=== PATIENT | male | born 1960 | race Caucasian/White ===

== ENCOUNTER 2019-07-21 12:12 | Emergency (ER) | payer OTHER ==
[2019-07-21 12:47] LABS: ABSOLUTE BASOPHILS # (AUTO) 0.1 10^3/uL (0.0-0.2); ABSOLUTE EOSINOPHILS # (AUTO) 0.4 10^3/uL (0.0-0.6); ABSOLUTE LYMPHOCYTES (AUTO) 2.1 10^3/uL (0.5-4.7); ABSOLUTE MONOCYTES (AUTO) 0.5 10^3/uL (0.1-1.4); ABSOLUTE NEUT (AUTO) 4.2 10^3/uL (1.7-8.2); BASOPHILS % (AUTO) 1.3 % (0-2); HEMOGLOBIN 16.7 g/dL (13.5-17.0); MEAN CORPUSCULAR HEMOGLOBIN 35.7 pg (27.0-33.4); MEAN CORPUSCULAR HGB CONC 35.4 g/dL (32.0-36.0); MEAN CORPUSCULAR VOLUME 101 fl (80-97); MONOCYTES % (AUTO) 7.5 % (3-13); PLATELET COUNT 177 10^3/uL (150-450); RED BLOOD COUNT 4.67 10^6/uL (4.35-5.55); RED CELL DISTRIBUTION WIDTH 13.6 % (11.5-14.0); SEGMENTED NEUTROPHILS % (AUTO) 57.2 % (42-78); TOTAL CELLS COUNTED % (AUTO) 100 %; WHITE BLOOD COUNT 7.3 10^3/uL (4.0-10.5)
--- NOTE | 2019-07-21 12:54 | ER Document Report ---
ED Cardiac - General Chief Complaint: Arrhythmia Stated Complaint: CHEST PAIN Time Seen by Provider: 07/21/19 12:28 Mode of Arrival: Medic Information source: Patient - HPI Notes: Patient is sent over by his manager food. Patient was having a cardiac stress test today when he had dizziness with con commitment wide-complex tachycardia, V. tach, and A. fib. His manager food aborted the stress test and transfer him to the emergency department. He states he would like the patient transferred to [facility]. Patient arrives essentially symptom-free. He states when he had the dizziness it was brief. It was made worse by the exertion better when he rested. There is no radiation of the symptoms. They were moderate in intensity. He states he had no chest pain or shortness of breath at any time. He states he has had a myocardial infarction in the past that is been treated with a stent. He states he takes 1 aspirin per day and has taken one today. - Related Data Allergies/Adverse Reactions: No Known Allergies Allergy (Unverified 07/21/19 12:29) Past Medical History - General Information source: Patient - Social History Smoking Status: Current Every Day Smoker Chew tobacco use (# tins/day): No Frequency of alcohol use: None Drug Abuse: None Family History: Reviewed & Not Pertinent Patient has homicidal ideation: No - Past Medical History Cardiac Medical History: Reports: Hx Hypercholesterolemia, Hx Hypertension Endocrine Medical History: Reports: Hx Diabetes Mellitus Type 2 Past Surgical History: Reports: Hx Cardiac Catheterization - 1 stent Review of Systems - Review of Systems Constitutional: denies: Chills, Malaise Cardiovascular: denies: Chest pain, Palpitations Respiratory: denies: Cough, Short of breath -: Yes All other systems reviewed and negative Physical Exam - Vital signs Vitals: Pulse Ox 96 07/21/19 12:29 Interpretation: Normal - General General appearance: Appears well, Alert - HEENT Head: Normocephalic, Atraumatic Eyes: Normal Pupils: PERRL - Respiratory Respiratory status: No respiratory distress Chest status: Nontender Breath sounds: Normal Chest palpation: Normal - Cardiovascular Rhythm: Regular Heart sounds: Normal auscultation Murmur: No - Abdominal Inspection: Normal Distension: No distension Bowel sounds: Normal Tenderness: Nontender Organomegaly: No organomegaly - Back Back: Normal, Nontender - Extremities General upper extremity: Normal inspection, Nontender, Normal color, Normal ROM, Normal temperature General lower extremity: Normal inspection, Nontender, Normal color, Normal ROM, Normal temperature, Normal weight bearing. No: Jesus's sign - Neurological Neuro grossly intact: Yes Cognition: Normal Orientation: AAOx4 Seema Coma Scale Eye Opening: Spontaneous [place] Coma Scale Verbal: Oriented Seema Coma Scale Motor: Obeys Commands Seema Coma Scale Total: 15 Speech: Normal Motor strength normal: LUE, RUE, LLE, RLE Sensory: Normal - Psychological Associated symptoms: Normal affect, Normal mood - Skin Skin Temperature: Warm Skin Moisture: Dry Skin Color: Normal Course - Re-evaluation Re-evalutation: 07/21/19 14:19 Patient was sent from the cardiology office due to V. tach during a stress test. Patient arrived here asymptomatic and has remained so throughout the stay. I have discussed the case with the manager food at [facility] who has accepted the patient in transfer. - Vital Signs Vital signs: Temp Pulse Resp BP Pulse Ox 98.1 F 23 H 130/86 H 95 07/21/19 12:30 07/21/19 14:01 07/21/19 14:00 07/21/19 14:01 - Laboratory Result Diagrams: 07/21/19 12:29 07/21/19 12:29 Laboratory results interpreted by me: 07/21/19 07/21/19 12:29 12:29 MCV 101 H MCH 35.7 H Carbon Dioxide 34 H Glucose 72 L - EKG Interpretation by Ok EKG shows normal: Sinus rhythm Rate: Normal - 75 Rhythm: NSR, APC's [place]/QRS: LAHB/LAFB Discharge - Discharge Clinical Impression: Ventricular tachycardia, nonsustained Condition: Stable Disposition: [facility]
[2019-07-21 13:05] LABS: ALBUMIN 4.3 g/dL (3.5-5.0); ALKALINE PHOSPHATASE 57 U/L (38-126); ANION GAP 6 (5-19); ASPARTATE AMINO TRANSFERASE 23 U/L (17-59); BILIRUBIN,TOTAL 0.6 mg/dL (0.2-1.3); BLOOD UREA NITROGEN 12 mg/dL (7-20); CARBON DIOXIDE 34 mmol/L (22-30); CHLORIDE 98 mmol/L (98-107); GLUCOSE 72 mg/dL (75-110); POTASSIUM 3.8 mmol/L (3.6-5.0); TOTAL PROTEIN 7.1 g/dL (6.3-8.2)
[2019-07-21 21:15] VITALS: BP 144/86
--- NOTE | 2019-07-22 07:42 | EKG REPORT ---
SEVERITY:- ABNORMAL ECG - SINUS RHYTHM MULTIPLE ATRIAL PREMATURE COMPLEXES LEFT ANTERIOR FASCICULAR BLOCK ANTERIOR INFARCT, AGE INDETERMINATE : Confirmed by: Claudette Balderas MD 22-Jul-2019 07:41:38
== END 2019-07-21 21:00 | disposition short-term general hospital (02) ==
LOC: ER 12:12
DX: I47.2 Ventricular tachycardia (principal); I44.4 Left anterior fascicular block; I49.1 Atrial premature depolarization; I25.2 Old myocardial infarction; I10 Essential (primary) hypertension; E11.9 Type 2 diabetes mellitus without complications; F17.200 Nicotine dependence, unspecified, uncomplicated; Z95.5 Presence of coronary angioplasty implant and graft; Z79.82 Long term (current) use of aspirin
CPT/HCPCS: 36415; 80053; 84484; 85025; 93005; 93010; 99285

== ENCOUNTER 2019-09-18 13:24 | Observation (INO) | payer OTHER ==
--- NOTE | 2019-09-18 13:36 | ER Document Report ---
ED Medical Screen (RME) - General Chief Complaint: Altered Mental Status Stated Complaint: POSSIBLE STROKE Time Seen by Provider: 09/18/19 13:28 Primary Care Provider: ALEX MCDERMOTT [Primary Care Provider] - Follow up as needed Mode of Arrival: Ambulatory Information source: Patient, Relative Notes: 59-year-old male presented to ED for altered mental status slowness of speech sometimes slurred speech over the last 2 to 3 days. He states that he did have a three-vessel bypass July 27. He has 2 prior MIs and a prior TIA. He states he has no weakness but he does have some slowness and sometimes slurred speech over the last several days. [facility]. Patient is alert oriented able to answer question is able to repeat. Vega alvarez picked up ventura of pickle peppers. We will get head CT and lab work appropriately. She states he does smoke 10 cigarettes a day does not drink or do any illicit drugs. I have greeted and performed a rapid initial assessment of this patient. A comprehensive ED assessment and evaluation of the patient, analysis of test results and completion of medical decision making process will be conducted by an additional ED providers. - Related Data Allergies/Adverse Reactions: No Known Allergies Allergy (Unverified 07/21/19 12:29) Past Medical History - Past Medical History Cardiac Medical History: Reports: Hx Hypercholesterolemia, Hx Hypertension Endocrine Medical History: Reports: Hx Diabetes Mellitus Type 2 Past Surgical History: Reports: Hx Cardiac Catheterization - 1 stent Doctor's Discharge - Discharge [facility] [[facility] - Follow up as needed
[2019-09-18 14:12] LABS: ABSOLUTE BASOPHILS # (AUTO) 0.1 10^3/uL (0.0-0.2); ABSOLUTE EOSINOPHILS # (AUTO) 0.9 10^3/uL (0.0-0.6); ABSOLUTE LYMPHOCYTES (AUTO) 2.2 10^3/uL (0.5-4.7); ABSOLUTE MONOCYTES (AUTO) 0.5 10^3/uL (0.1-1.4); ABSOLUTE NEUT (AUTO) 3.8 10^3/uL (1.7-8.2); BASOPHILS % (AUTO) 1.3 % (0-2); EOSINOPHILS % (AUTO) 11.5 % (0-6); HEMATOCRIT 43.3 % (37.9-51.0); HEMOGLOBIN 14.5 g/dL (13.5-17.0); LYMPHOCYTES % (AUTO) 29.4 % (13-45); MEAN CORPUSCULAR HEMOGLOBIN 28.7 pg (27.0-33.4); MEAN CORPUSCULAR HGB CONC 33.5 g/dL (32.0-36.0); MEAN CORPUSCULAR VOLUME 86 fl (80-97); MONOCYTES % (AUTO) 6.6 % (3-13); PLATELET COUNT 211 10^3/uL (150-450); RED BLOOD COUNT 5.05 10^6/uL (4.35-5.55); RED CELL DISTRIBUTION WIDTH 16.4 % (11.5-14.0); SEGMENTED NEUTROPHILS % (AUTO) 51.2 % (42-78); TOTAL CELLS COUNTED % (AUTO) 100 %; WHITE BLOOD COUNT 7.5 10^3/uL (4.0-10.5)
[2019-09-18 14:16] LABS: INTERNATIONAL RATION (INR) 1.14; PROTHROMBIN TIME 14.7 SEC (11.4-15.4)
[2019-09-18 14:17] LABS: PARTIAL THROMBOPLASTIN TIME 29.6 SEC (23.5-35.8)
[2019-09-18 14:37] LABS: ALBUMIN 4.2 g/dL (3.5-5.0); ALKALINE PHOSPHATASE 75 U/L (38-126); ANION GAP 9 (5-19); ASPARTATE AMINO TRANSFERASE 23 U/L (17-59); BILIRUBIN,TOTAL 0.3 mg/dL (0.2-1.3); BLOOD UREA NITROGEN 11 mg/dL (7-20); CALCIUM 9.6 mg/dL (8.4-10.2); CARBON DIOXIDE 29 mmol/L (22-30); CHLORIDE 102 mmol/L (98-107); GLUCOSE 113 mg/dL (75-110); POTASSIUM 4.3 mmol/L (3.6-5.0); TOTAL PROTEIN 7.3 g/dL (6.3-8.2)
--- NOTE | 2019-09-18 15:14 | RADIOLOGY REPORT (SQ) ---
EXAM DESCRIPTION: CHEST 2 VIEWS IMAGES COMPLETED DATE/TIME: 09/18/2019 2:54 pm REASON FOR STUDY: altered mental status slow speech COMPARISON: None. EXAM PARAMETERS: NUMBER OF VIEWS: two views TECHNIQUE: Digital Frontal and Lateral radiographic views of the chest acquired. RADIATION DOSE: NA LIMITATIONS: none FINDINGS: LUNGS AND PLEURA: Right pleural effusion. No pneumothorax or consolidation. MEDIASTINUM AND HILAR STRUCTURES: No masses or contour abnormalities. HEART AND VASCULAR STRUCTURES: Heart normal size. No evidence for failure. BONES: No acute findings. HARDWARE: Sternotomy wires are in place. Atrial clip is noted. OTHER: No other significant finding. IMPRESSION: Small right pleural effusion. No other significant findings. TECHNICAL DOCUMENTATION: JOB ID: [id number] 2010 [employer]- All Rights Reserved Reading location - IP/workstation name: [email or web address]
--- NOTE | 2019-09-18 15:15 | RADIOLOGY REPORT (SQ) ---
EXAM DESCRIPTION: CT HEAD WITHOUT IMAGES COMPLETED DATE/TIME: 09/18/2019 3:01 pm REASON FOR STUDY: altered mental status slow speech COMPARISON: None. TECHNIQUE: Axial images acquired through the brain without intravenous contrast. Images reviewed wi th bone, brain and subdural windows. Additional sagittal and coronal reconstructions were generated. Images stored on PACS. All CT scanners at this facility use dose modulation, iterative reconstruction, and/or weight based d osing when appropriate to reduce radiation dose to as low as reasonably achievable (ALARA). [facility]: Dose Right [facility]: CareDose [facility]: Dose Right [facility]: Teradose 4D [facility]: Periscope RADIATION DOSE: CT Rad equipment meets quality standard of care and radiation dose reduction techniq ues were employed. CTDIvol: 53.2 mGy. DLP: 1070 mGy-cm. mGy. LIMITATIONS: None. FINDINGS: VENTRICLES: Prominent. CEREBRUM: No masses. No hemorrhage. No midline shift. Areas of low density in the white matter mos t likely due to chronic micro-vascular ischemic change. No evidence for acute infarction. CEREBELLUM: No masses. No hemorrhage. No alteration of density. No evidence for acute infarction. EXTRAAXIAL SPACES: Mild age-related involutional change. No fluid collections. No masses. ORBITS AND GLOBE: No intra- or extraconal masses. Normal contour of globe without masses. CALVARIUM: No fracture. PARANASAL SINUSES: No fluid or mucosal thickening. SOFT TISSUES: No mass or hematoma. OTHER: Calcified plaque is noted in the visualized intracranial vertebral arteries. The basilar karol ry appears ectatic. IMPRESSION: MILD CHRONIC CHANGES OF ATROPHY AND MICROVASCULAR ISCHEMIA. NO ACUTE PROCESS. EVIDENCE OF ACUTE STROKE: NO. TECHNICAL DOCUMENTATION: JOB ID: [id number] Quality ID # [id number]: Final reports with documentation of one or more dose reduction techniques (e.g., Au tomated exposure control, adjustment of the mA and/or kV according to patient size, use of iterative reconstruction technique) 2010 [employer]- All Rights Reserved Reading location - IP/workstation name: [email or web address]
--- NOTE | 2019-09-18 16:14 | ER Document Report ---
ED Neuro Symptoms/Deficit - General Chief Complaint: S/S of Possible Stroke Stated Complaint: POSSIBLE STROKE Time Seen by Provider: 09/18/19 13:28 Primary Care Provider: BALDEMAR,ALEX [Primary Care Provider] - Follow up as needed Mode of Arrival: Ambulatory Notes: Patient is a 59-year-old male with a past medical history of atrial fibrillation, WA 2 months ago, TIA, and diabetes who presents the emergency department with slurred speech that started 2 to 3 days ago. Patient also has complaints of numbness to the right side of his body in the left side of his face. Patient is currently on Eliquis. - Related Data Allergies/Adverse Reactions: No Known Allergies Allergy (Verified 09/18/19 17:51) Past Medical History - General Information source: Patient, Relative - Social History Smoking Status: Current Every Day Smoker Family History: Reviewed & Not Pertinent - Past Medical History Cardiac Medical History: Reports: Hx Atrial Fibrillation, Hx Heart Attack, Hx Hypercholesterolemia, Hx Hypertension Endocrine Medical History: Reports: Hx Diabetes Mellitus Type 2 Past Surgical History: Reports: Hx Cardiac Catheterization - 1 stent, Hx Open Heart Surgery - triple bypass Review of Systems - Review of Systems Notes: REVIEW OF SYSTEMS: CONSTITUTIONAL : Denies recent illness. Denies recent unintentional weight loss. Denies fever, chills, or sweats. EENT: Denies eye, ear, throat, or mouth pain, discharge, or symptoms. Denies nasal or sinus congestion. CARDIOVASCULAR: Denies chest pain. RESPIRATORY: Denies shortness of breath, cough, congestion, difficulty breathing, or wheezing. GASTROINTESTINAL: Denies nausea, vomiting, and diarrhea. Denies abdominal pain. Denies constipation. GENITOURINARY: Denies difficulty urinating, burning, blood in urine, urgency or frequency. MUSCULOSKELETAL: Denies neck and back pain. Denies joint pain or swelling. SKIN: Denies rash, itchiness, or lesions HEMATOLOGIC : Denies easy bruising or bleeding. LYMPHATIC: Denies swollen, painful, enlarged glands. NEUROLOGICAL: See HPI. PSYCHIATRIC: Denies stress, anxiety, alteration in sleep patterns, or depression. All other systems reviewed and negative. Physical Exam - Vital signs Vitals: Temp Pulse Resp BP Pulse Ox 98.4 F 77 20 109/78 99 09/18/19 13:30 09/18/19 13:30 09/18/19 13:30 09/18/19 13:30 09/18/19 13:30 - Notes Notes: PHYSICAL EXAMINATION: GENERAL: Appears well, healthy, well-nourished, no acute distress. HEAD: Normocephalic, atraumatic. EYES: PERRL, conjunctiva normal, all extraocular movements intact, sclera nonicteric ENT: Moist mucous membranes. NECK: Supple, no noticeable swelling, redness, rash. Normal range of motion. LUNGS: Equal breath sounds bilaterally and clear to auscultation. No wheezes rales or rhonchi. CARDIOVASCULAR: S1-S2, regular rate, regular rhythm. Radial pulses 2+, normal. ABDOMEN: Normoactive bowel sounds. Soft, nontender, no guarding, no rebound tenderness, and no masses palpated. EXTREMITIES: Normal strength and range of motion, no pitting or edema. No cyanosis. NEUROLOGICAL: Moves all extremities upon command. Strength 5/5 in all e xtremities. Sensory deficit to left side of face and right upper extremity. Slurred speech noted. PSYCH: Normal mood, normal affect. SKIN: Warm, dry. No rash, lesions, ulcerations noted. Normal skin turgor. Course - Re-evaluation Re-evalutation: 09/18/19 16:17 Hematology is unremarkable. Coags are also normal. Chemistries are unremarkable. Patient's physical exam is consistent with an acute stroke that happened 2 to 3 days ago. Patient is not a candidate for TPA due to the duration of the patient's symptoms and the patient is currently on Eliquis. Called the hospitalist team and spoke with Dr. Mendiola. Attempted to call Dior Rodriguez. Will await callback. 09/18/19 16:38 I spoke with Dior Rodriguez NP. Patient will be admitted under observation to [facility]. - Vital Signs Vital signs: Temp Pulse Resp BP Pulse Ox 98.4 F 77 20 109/78 99 09/18/19 13:30 09/18/19 15:33 09/18/19 15:33 09/18/19 15:33 09/18/19 15:33 - Laboratory Result Diagrams: 09/18/19 13:53 09/18/19 13:53 Laboratory results interpreted by me: 09/18/19 09/18/19 13:53 13:53 RDW 16.4 H Eos % (Auto) 11.5 H Absolute Eos (auto) 0.9 H Glucose 113 H ED Alteplase Inc/Exc Criteria - Date/Time patient last known well: Date/Time: 09/16/2019 - Date/Time patient arrived in ED: _: 09/18/2019 - Inclusion Criteria: 1: Patient presented to ED within 3 hours of acute ischemic stroke symptom onset? -: No 2: Did baseline CT exclude intracranial hemorrhage and/or other risk factors? -: No 3: Is the age of the patient 18 years of age or greater? -: Yes : If any of the above questions are answered "NO" then stop, patient is not a candidate for Alteplase, : If all of the above questions are answered "YES" then continue with Exclusion Criteria. - Exclusion Criteria: 1: Is there evidence of intracranial hemorrhage on baseline CT? -: No 2: Is there suspicion of subarachnoid hemorrhage (even if CT negative)? -: No 3: Is there a history of serious head trauma, recent previous stroke or WA within 3 months? -: Yes 4: Does the patient have a clinical presentation consistent with WA or post-WA pericarditis? -: No 5: Is there history of intracranial hemorrhage? -: No 6: On repeated measurement is Systolic BP greater than 185mmHg or Diastolic BP greater that 110 mmHg and is aggressive treatment needed to reduce blood pressure to these limits (e.g. constant infusion of an anti-hypertensive)? -: No 7: Did the patient awake with stroke symptoms? -: No 8: Has the patient had a lumbar puncture or an arterial puncture at a non- compressile site within 7 days? -: No 9: With in the last 14 days did the patient have surgery or major trauma? -: No 10: Is the patient or less than 2 weeks? -: No 11: Was there any active bleeding or acute trauma? -: No 12: Does the patient have intracranial neoplasm, arteriovenous malformation or aneurysm? -: No 13: Does the patient have abnormal glucose (less than 50 or greater than 400mg/dl)? Record glucose in Comment. -: No 14: Patient has rapidly improving symptoms at the time Alteplase is to be Administered. -: No 15: Does the patient have any risks for bleeding, including but not limited to: a.: Current use of Coumadin with PT greater than 15 seconds or INR greater than 1.7. b.: Current use of Pradaxa (Dabigatran). c.: Heparin administereed within the past 48 hours and PTT elevated. d.: Platelet count less than 100,000/mm. e.: Major surgery or serious trauma within 14 days. f.: Gastrointestinal or gynecological urinary bleeding within 14 days. g.: Myocardial Infarction (WA) within 3 months. : If the answer to any of the above questions is "YES" then stop, the patient is not a candidate for Alteplase. : If the answer to all of the above questions is "NO" then the patient may be eligible for the Administration of Alteplase. : If the patient is noted to have seizure activity at onset of Stroke symptoms; Consult Neurologist for further evaluation. - The patient is: -: Included and is eligible to receive Alteplase. *Initiate bed placement at higher level of care* --: No Reviewed risks & benefits of thrombolytic therapy: I have reviewed the risks and benefits of thrombolytic therapy with the patient and/or his/her family. No - Not candidate -: Excluded and not eligible to receive Alteplase for the above exclusions. -: Excluded and not eligible to receive Alteplase for other reasons (specify in comments): - Diagnosis of TIA: -: Patient presented with transient symptoms that are now resolved and no other neurologic findings are currently present. List symptoms in comments. -: No -: Patient is NOT a candidate for tPA. -: Yes -: ____(put name in comment) has been consulted for admission and continued evaluation of risk factor assessment. Discharge - Discharge Clinical Impression: Acute ischemic stroke Condition: Stable Disposition: ADMITTED OBSERVATION Admitting Provider: Carrie (Hospitalist) Unit Admitted: IMCU [facility] [[facility]] - Follow up as needed
[2019-09-18 17:18] LABS: APPEARANCE,URINE CLEAR; BILIRUBIN,URINE NEGATIVE (NEGATIVE); COLOR,URINE YELLOW; GLUCOSE, URINE NEGATIVE (NEGATIVE); KETONES,URINE NEGATIVE (NEGATIVE); LEUKOCYTE ESTERASE,URINE NEGATIVE (NEGATIVE); NITRITE,URINE NEGATIVE (NEGATIVE); PROTEIN,URINE NEGATIVE (NEGATIVE); URINE SPECIFIC GRAVITY 1.024
[2019-09-18 17:31] LABS: URINE AMPHETAMINES SCREEN NEGATIVE; URINE BARBITURATES SCREEN NEGATIVE; URINE BENZODIAZEPINES SCREEN NEGATIVE; URINE COCAINE SCREEN NEGATIVE; URINE MARIJUANA (THC) SCREEN NEGATIVE; URINE METHADONE SCREEN NEGATIVE; URINE PHENCYCLIDINE SCREEN NEGATIVE
[2019-09-18 17:57] LABS: CHOLESTEROL 132.32 mg/dL (0-200); TRIGLYCERIDES 192 mg/dL (<150)
[2019-09-18 18:08] LABS: DIRECT LDL 72 mg/dL (<100); VLDL CHOLESTEROL 38.4 mg/dL (10-31)
[2019-09-18] MEDS ORDERED: MAGNESIUM HYDROXIDE SUSP 30 ML UDCUP PO PRN (18:13)
[2019-09-18] MEDS ORDERED: ONDANSETRON HCL INJ/PF 4 MG/2 ML SDV IV PRN (18:13)
[2019-09-18] MEDS ORDERED: DOCUSATE SODIUM 100 MG CAPSULE PO PRN (18:13)
[2019-09-18] MEDS ORDERED: ACETAMINOPHEN 325 MG TABLET PO PRN (18:13)
[2019-09-18] MEDS ORDERED: HYDRALAZINE HCL INJ/PF 20 MG/1 ML SDV IV PRN (18:24)
[2019-09-18] MEDS ORDERED: DEXTROSE 50%-WATER 25 GM/50 ML DISP.SYRIN IV PRN ×2 (18:25)
[2019-09-18] MEDS ORDERED: DEXTROSE 40% GEL 15 GM TUBE PO PRN ×2 (18:25)
[2019-09-18] MEDS ORDERED: GLUCAGON,HUMAN RECOMB 1 MG INJ IM PRN (18:25)
[2019-09-18] MEDS ORDERED: MECLIZINE HCL 12.5 MG TABLET PO PRN (18:27)
--- NOTE | 2019-09-18 18:28 | PDOC H&P ---
History of Present Illness Admission Date/PCP: 09/18/19 17:04 [facility] Patient complains of: Delayed speech History of Present Illness: FOZIA GILES is a 59 year old male with a past medical history significant for three-vessel bypass (July 2019 at [facility]), atrial fibrillation, hypertension, hyperlipidemia, prediabetes, and TIAs who presented to the emergency department today with a complaint of 2 to 3 days of intermittent delayed/slurred speech and forgetfulness without focal deficits. Patient does admit to occasional headaches and vertigo, not associated with slurred speech is, not aggravated by position change. Evaluation in the emergency department was unremarkable with stable vital signs, normal CBC, chemistry, PT/INR, a urinalysis, and toxicology. EKG shows sinus rhythm. Chest x-ray benign. Head CT revealed mild chronic changes of atrophy and microvascular ischemia without acute findings. He is referred to the hospitalist service for admission management of the above- stated complaints and findings. Past Medical History Cardiac Medical History: Reports: Atrial Fibrillation, Myocardial Infarction, Hyperlipidema, Hypertension Pulmonary Medical History: Reports: None EENT Medical History: Reports: None Neurological Medical History: Reports: None Endocrine Medical History: Reports: Other - Prediabetes Renal/ Medical History: Reports: None Malignancy Medical History: Reports: None GI Medical History: Reports: None Musculoskeltal Medical History: Reports: None Skin Medical History: Reports: None Psychiatric Medical History: Reports: None Traumatic Medical History: Reports: None Hematology: Reports: None Infectious Medical History: Reports: None Past Surgical History Past Surgical History: Reports: Cardiac Catheterization, Coronary Artery Bypass Graft Social History Information Source: Patient Lives with: Family Smoking Status: Former Smoker Electronic Cigarette use?: No Frequency of Alcohol Use: None Hx Recreational Drug Use: No Hx Prescription Drug Abuse: No - Advance Directive Resuscitation Status: Full Code Family History Family History: Reviewed & Not Pertinent Parental Family History Reviewed: Yes Children Family History Reviewed: Yes Sibling(s) Family History Reviewed.: Yes Medication/Allergy Allergies/Adverse Reactions: No Known Allergies Allergy (Verified 09/18/19 17:51) Review of Systems Constitutional: PRESENT: headache(s). ABSENT: chills, fever(s), weight gain, weight loss Eyes: ABSENT: visual disturbances Ears: ABSENT: hearing changes Cardiovascular: ABSENT: chest pain, dyspnea on exertion, edema, orthropnea, palpitations Respiratory: ABSENT: cough, hemoptysis Gastrointestinal: ABSENT: abdominal pain, constipation, diarrhea, hematemesis, h ematochezia, nausea, vomiting Genitourinary: ABSENT: dysuria, hematuria Musculoskeletal: ABSENT: joint swelling Integumentary: ABSENT: rash, wounds Neurological: PRESENT: as per HPI, abnormal speech, dizziness. ABSENT: abnormal gait, confusion, focal weakness, syncope Psychiatric: ABSENT: anxiety, depression, homidical ideation, suicidal ideation Endocrine: ABSENT: cold intolerance, heat intolerance, polydipsia, polyuria Hematologic/Lymphatic: ABSENT: easy bleeding, easy bruising Physical Exam Vital Signs: Temp Pulse Resp BP Pulse Ox 98.4 F 77 30 H 106/79 96 09/18/19 13:30 09/18/19 15:33 09/18/19 17:01 09/18/19 17:00 09/18/19 17:01 Intake & Output 09/17/19 09/18/19 09/19/19 06:59 06:59 06:59 Weight 70 kg General appearance: PRESENT: no acute distress, cooperative, well-developed, wel l-nourished Head exam: PRESENT: atraumatic, normocephalic Eye exam: PRESENT: conjunctiva pink, EOMI, PERRLA. ABSENT: scleral icterus Ear exam: PRESENT: other - Cerumen impaction bilaterally; external erythema with serous drainage to right ear Mouth exam: PRESENT: moist, tongue midline Respiratory exam: PRESENT: clear to auscultation nilda, symmetrical, unlabored. ABSENT: rales, rhonchi, wheezes Cardiovascular exam: PRESENT: RRR, +S1, +S2. ABSENT: diastolic murmur, rubs, systolic murmur Pulses: PRESENT: normal dorsalis pedis pul Vascular exam: PRESENT: normal capillary refill GI/Abdominal exam: PRESENT: normal bowel sounds, soft. ABSENT: distended, guarding, mass, organolmegaly, rebound, tenderness Rectal exam: PRESENT: deferred Extremities exam: PRESENT: full ROM. ABSENT: calf tenderness, clubbing, pedal edema Neurological exam: PRESENT: alert, awake, oriented to person, oriented to place, oriented to time, oriented to situation, CN II-XII grossly intact. ABSENT: motor sensory deficit Psychiatric exam: PRESENT: anxious, appropriate affect, normal mood. ABSENT: homicidal ideation, suicidal ideation Skin exam: PRESENT: dry, intact, warm. ABSENT: cyanosis, rash Results Laboratory Results: 09/18/19 13:53 09/18/19 13:53 09/18/19 09/18/19 09/18/19 13:53 13:53 13:53 WBC 7.5 RBC 5.05 Hgb 14.5 Hct 43.3 MCV 86 MCH 28.7 MCHC 33.5 RDW 16.4 H Plt Count 211 Seg Neutrophils % 51.2 Sodium 140.1 Potassium 4.3 Chloride 102 Carbon Dioxide 29 Anion Gap 9 BUN 11 Creatinine 0.77 Est GFR ( Amer) > 60 Glucose 113 H Calcium 9.6 Total Bilirubin 0.3 AST 23 Alkaline Phosphatase 75 Total Protein 7.3 Albumin 4.2 Triglycerides 192 H Cholesterol 132.32 LDL Cholesterol Direct 72 VLDL Cholesterol 38.4 H HDL Cholesterol 39 L Lipase 60.1 Urine Color Urine Appearance Urine pH Ur Specific [place] Urine Protein Urine Glucose (UA) Urine Ketones Urine Blood Urine Nitrite Ur Leukocyte Esterase Urine WBC (Auto) Urine RBC (Auto) 09/18/19 16:44 WBC RBC Hgb Hct MCV MCH MCHC RDW Plt Count Seg Neutrophils % Sodium Potassium Chloride Carbon Dioxide Anion Gap BUN Creatinine Est GFR ( Amer) Glucose Calcium Total Bilirubin AST Alkaline Phosphatase Total Protein Albumin Triglycerides Cholesterol LDL Cholesterol Direct VLDL Cholesterol HDL Cholesterol Lipase Urine Color YELLOW Urine Appearance CLEAR Urine pH 5.0 Ur Specific [place] 1.024 Urine Protein NEGATIVE Urine Glucose (UA) NEGATIVE Urine Ketones NEGATIVE Urine Blood NEGATIVE Urine Nitrite NEGATIVE Ur Leukocyte Esterase NEGATIVE Urine WBC (Auto) 2 Urine RBC (Auto) 1 Impressions: Chest X-Ray 09/18/19 13:29 IMPRESSION: Small right pleural effusion. No other significant findings. Head CT 09/18/19 13:30 IMPRESSION: MILD CHRONIC CHANGES OF ATROPHY AND MICROVASCULAR ISCHEMIA. NO ACUTE PROCESS. EVIDENCE OF ACUTE STROKE: NO. Assessment and Plan - Diagnosis (1) Abnormal rate of speech Is this a current diagnosis for this admission?: Yes Plan: Concerning for potential TIA/CVA. Head CT is benign. Head MRI is pending. Carotid Doppler pending. Have requested echocardiogram from recent admission to [facility]. Chemistry and UDS are negative. TSH pending. A1c 5.1%. Lipid panel is acceptable; triglycerides 192, total cholesterol 132, LDL 72, HDL 39. Patient is admitted to [facility] on continuous cardiac telemetry. Start daily aspirin and statin therapy. Start Plavix. Maintain Blood pressure and glucose control. PT OT ST consults placed. Cardiac diet. (2) Hypertension Is this a current diagnosis for this admission?: Yes Plan: Resume home antihypertensive regiment once reconciled. IV hydralazine as needed for blood pressure control. Cardiac diet. (3) Hyperlipidemia Is this a current diagnosis for this admission?: Yes Plan: High-dose statin. Cardiac diet. (4) Prediabetes Is this a current diagnosis for this admission?: Yes Plan: A1c 5.1%. Accu-Cheks twice with Humalog for sliding scale coverage. Hypoglycemia protocol. (5) Cerumen impaction Qualifiers: Laterality: bilateral Qualified Code(s): H61.23 - Impacted cerumen, bilateral Is this a current diagnosis for this admission?: Yes Plan: Colace to bilateral ears. Have asked nursing to irrigate. (6) Vertigo Is this a current diagnosis for this admission?: Yes Plan: Obtain orthostatic blood pressures. Evaluation and management as a #1. Fall precautions. Meclizine. - Time Time Spent with patient: 35 or more minutes Medications reviewed and adjusted accordingly: Yes Anticipated discharge: Home Within: within 24 hours
[2019-09-18] MEDS ORDERED: DOCUSATE SODIUM 100 MG CAPSULE BTH_EAR ONE (19:00)
--- NOTE | 2019-09-18 21:22 | RADIOLOGY REPORT (SQ) ---
EXAM DESCRIPTION: MRI of the brain without gadolinium. CLINICAL HISTORY: 59 years Male Slurred speech; TIA/CVA COMPARISON: Noncontrast CT of the head from today. TECHNIQUE: Multisequence multiplanar images of the brain without gadolinium. FINDINGS: Mild central and wyfz-it-uxltowsw cortical atrophy. Moderate bilateral periventricular white matter hyperintensities slightly worse on the left no obvious brainstem abnormalities. No obvious restricted diffusion. On series 3 image 14, there is minimal increased signal intensity of the left temporal lobe on diffusion images which is probably artifact. Gradient echo images are unremarkable. Pituitary gland is not enlarged. Mild sinus disease IMPRESSION: 1. Atherosclerotic disease better appreciated on CT. Increased periventricular white matter disease for age greater on the left. 2. No obvious restricted diffusion/acute infarction.
[2019-09-18] MEDS: FAMOTIDINE 20 MG TABLET PO SCH (21:47)
[2019-09-18] MEDS: HEPARIN SOD (PORCINE) 5,000 UNIT/ML 1 ML VIAL SUBCUT SCH (21:48)
[2019-09-18] MEDS ORDERED: ATORVASTATIN CALCIUM 80 MG TABLET PO SCH (22:00)
[2019-09-19] MEDS: HEPARIN SOD (PORCINE) 5,000 UNIT/ML 1 ML VIAL SUBCUT SCH (06:20)
[2019-09-19 07:08] LABS: HEMATOCRIT 42.7 % (37.9-51.0); HEMOGLOBIN 14.5 g/dL (13.5-17.0); MEAN CORPUSCULAR HEMOGLOBIN 28.7 pg (27.0-33.4); MEAN CORPUSCULAR VOLUME 84 fl (80-97); PLATELET COUNT 180 10^3/uL (150-450); RED BLOOD COUNT 5.07 10^6/uL (4.35-5.55); RED CELL DISTRIBUTION WIDTH 16.3 % (11.5-14.0); WHITE BLOOD COUNT 7.9 10^3/uL (4.0-10.5)
[2019-09-19 07:27] LABS: ANION GAP 9 (5-19); BLOOD UREA NITROGEN 10 mg/dL (7-20); CALCIUM 9.1 mg/dL (8.4-10.2); CARBON DIOXIDE 27 mmol/L (22-30); CHLORIDE 102 mmol/L (98-107); GLUCOSE 95 mg/dL (75-110); POTASSIUM 3.9 mmol/L (3.6-5.0)
[2019-09-19] MEDS ORDERED: INSULIN LISPRO 100 UNIT/ML 3 ML VIAL SUBCUT SCH (08:00)
--- NOTE | 2019-09-19 08:23 | RADIOLOGY REPORT (SQ) ---
EXAM DESCRIPTION: CAROTID DOPPLER IMAGES COMPLETED DATE/TIME: 09/18/2019 8:09 pm REASON FOR STUDY: TIA/CVA COMPARISON: None. TECHNIQUE: Grayscale ultrasound, Doppler velocity and spectra, and color Doppler images acquired of the extra-cranial carotid and vertebral arteries. Images stored on PACS. LIMITATIONS: None. FINDINGS: RIGHT CAROTID CCA Velocities: Within normal limits. ICA Velocities Peak systolic 0.66 m/s. End diastolic 0.29 m/s. Proximal ICA/CCA peak systolic ratio 1.0. Mild plaque at the bulb LEFT CAROTID CCA Velocities: Within normal limits. ICA Velocities Peak systolic 0.73 m/s. End diastolic 0.34 m/s. Proximal ICA/CCA peak systolic ratio 1.0. Mild plaque in the bulb VERTEBRAL ARTERIES: Antegrade flow. Normal waveforms. SUBCLAVIAN ARTERIES: No finding. OTHER: No other significant finding. IMPRESSION: NO HEMODYNAMICALLY SIGNIFICANT STENOSIS. COMMENT: Quality ID #[id number]: Velocity criteria are extrapolated from the diameter data as defined by t he Society of Radiologists in Ultrasound Consensus Conference. Radiology 2003: 229; 340-346. TECHNICAL DOCUMENTATION: JOB ID: [id number] 2010 [employer]- All Rights Reserved Reading location - IP/workstation name: [email or web address]
[2019-09-19] MEDS ORDERED: NORMAL SALINE 1000 ML 1,000 ML IV ONE (08:30)
[2019-09-19] MEDS: FAMOTIDINE 20 MG TABLET PO SCH (09:39)
[2019-09-19] MEDS ORDERED: CLOPIDOGREL BISULFATE 75 MG TABLET PO SCH (10:00)
[2019-09-19] MEDS ORDERED: CARBAMIDE PEROXIDE 6.5% OTIC SOLN 15 ML AU SCH (10:00)
[2019-09-19] MEDS ORDERED: ASPIRIN 81 MG TABLET, ENT COATED PO SCH (10:00)
[2019-09-19] MEDS ORDERED: NORMAL SALINE 1000 ML 1,000 ML IV PRN (10:02)
[2019-09-19] MEDS ORDERED: DULOXETINE HCL 30 MG CAPSULE.DR PO SCH (11:00)
[2019-09-19] MEDS ORDERED: ARIPIPRAZOLE 5 MG TABLET PO SCH (11:00)
--- NOTE | 2019-09-19 11:47 | EKG REPORT ---
SEVERITY:- ABNORMAL ECG - SINUS RHYTHM LEFT ANTERIOR FASCICULAR BLOCK BORDERLINE R WAVE PROGRESSION, ANTERIOR LEADS ABNORMAL T, CONSIDER ISCHEMIA, LATERAL LEADS : Confirmed by: Bernardo Polanco MD 19-Sep-2019 11:46:21
[2019-09-19 15:23] VITALS: BP 119/80
[2019-09-19] MEDS ORDERED: METFORMIN HCL 500 MG TABLET PO SCH (18:00)
[2019-09-19] MEDS ORDERED: ARIPIPRAZOLE 5 MG PO SCH (22:00)
[2019-09-19] MEDS ORDERED: TRAZODONE HCL 50 MG TABLET PO SCH (22:00)
[2019-09-19] MEDS ORDERED: MELATONIN 3 MG TABLET PO SCH (22:00)
[2019-09-19] MEDS ORDERED: APIXABAN 5 MG TABLET PO SCH (22:00)
[2019-09-19] MEDS ORDERED: PRAZOSIN HCL 10 MG PO SCH (22:00)
[2019-09-20] MEDS ORDERED: (PENDING PHARMACY ID) (Duloxetine Hcl [Cymbalta] 120 MG) PO SCH (08:00)
--- NOTE | 2019-09-20 18:40 | PDOC DISCHARGE SUMMARY ---
Impression - Admit/DC Date/PCP Admission Date/Primary Care Provider: 09/18/19 17:[facility] Discharge Date: 09/20/19 - Discharge Diagnosis (1) Abnormal rate of speech Is this a current diagnosis for this admission?: Yes (2) Hypertension Is this a current diagnosis for this admission?: Yes (3) Hyperlipidemia Is this a current diagnosis for this admission?: Yes (4) Prediabetes Is this a current diagnosis for this admission?: Yes (5) Cerumen impaction Is this a current diagnosis for this admission?: Yes (6) Vertigo Is this a current diagnosis for this admission?: Yes - Additional Information Resuscitation Status: Full Code Discharge Diet: Cardiac Discharge Activity: Activity As Tolerated, Balance Activity w/Rest Referrals: STEPHANIE HARLEY MD [NO LOCAL MD] - (Follow up at the earliest available appointment for further evaluation of new onset spastic dysarthria.) [facility] [Primary Care Provider] - (Follow-up within 1 week) Prescriptions: Carbamide Peroxide [Debrox 6.5 % Otic Drops 15 ml] 1 drop AU Q12 #1 bottle Aspirin [Ecotrin 81 mg EC Tablet] 81 mg PO DAILY #90 tabec Home Medications: Apixaban [Eliquis 5 mg Tablet] 5 mg PO Q12 09/18/19 Aripiprazole 5 mg PO Q12 09/18/19 Duloxetine HCl [Cymbalta] 120 mg PO QAM 09/18/19 Melatonin [Melatonin 3 mg Tablet] 9 mg PO QHS 09/18/19 Metformin HCl [Glucophage 500 mg Tablet] 1,000 mg PO BID 09/18/19 Prazosin HCl [Minipress] 10 mg PO QHS 09/18/19 Rosuvastatin Calcium [Crestor] 40 mg PO QHS 09/18/19 Trazodone HCl 100 mg PO QHS 09/18/19 Acetaminophen [Tylenol 325 mg Tablet] 650 mg PO Q4HP PRN tablet 09/19/19 Aspirin [Ecotrin 81 mg EC Tablet] 81 mg PO DAILY #90 tabec 09/19/19 Carbamide Peroxide [Debrox 6.5 % Otic Drops 15 ml] 1 drop AU Q12 #1 bottle 09/19/19 History of Present Illiness History of Present Illness: FOZIA GILES is a 59 year old male with a past medical history significant for three-vessel bypass (July 2019 at [facility]), atrial fibrillation, hypertension, hyperlipidemia, prediabetes, and TIAs who presented to the emergency department today with a complaint of 2 to 3 days of intermittent delayed/slurred speech and forgetfulness without focal deficits. Patient does admit to occasional headache s and vertigo, not associated with slurred speech is, not aggravated by position change. Evaluation in the emergency department was unremarkable with stable vital signs, normal CBC, chemistry, PT/INR, a urinalysis, and toxicology. EKG shows sinus rhythm. Chest x-ray benign. Head CT revealed mild chronic changes of atrophy and microvascular ischemia without acute findings. He is referred to the hospitalist service for admission management of the above- stated complaints and findings. Hospital Course Hospital Course: (1) Abnormal rate of speech Spastic dysarthria Head CT is benign. Head MRI is benign; no acute findings. Notable for atherosclerotic disease and periventricular white matter disease greater on the left. Carotid Doppler negative for hemodynamically significant stenosis Chemistry and UDS are negative. TSH nml AM cortisol is nml A1c 5.1%. Lipid panel is acceptable; triglycerides 192, total cholesterol 132, LDL 72, HDL 39. Patient is admitted to [facility] on continuous cardiac telemetry. Continue daily aspirin and statin therapy. Continue home dose Eliquis. Maintain Blood pressure and glucose control. PT OT ST consults placed; recommend outpatient follow up. Cardiac diet. (2) Hypertension Continue home medication regimen. Cardiac diet. (3) Hyperlipidemia High-dose statin. Cardiac diet. (4) Prediabetes A1c 5.1%. Continue dietary control. (5) Cerumen impaction Colace to bilateral ears. Have irrigated bilaterally w/ improvement. TMs not yet visualized. Continue Debrox twice daily. (6) Vertigo Resolved. Evaluation and management as a #1. (7) Spastic dysarthria Outpatient ST sessions Outpatient Neurology follow up. Remaining evaluation as above. Physical Exam Vital Signs: Temp Pulse Resp BP Pulse Ox 97.8 F 60 21 H 119/80 97 09/19/19 15:19 09/19/19 15:19 09/19/19 15:19 09/19/19 15:19 09/19/19 15:19 Intake & Output 09/19/19 09/20/19 09/21/19 06:59 06:59 06:59 Intake Total 320 1000 Balance 320 1000 Weight 73.9 kg General appearance: PRESENT: no acute distress, cooperative, well-developed, well-nourished Head exam: PRESENT: atraumatic, normocephalic Eye exam: PRESENT: conjunctiva pink, EOMI, PERRLA. ABSENT: scleral icterus Ear exam: PRESENT: other - Cerumen impaction bilaterally; improved. ABSENT: normal external ear exam Mouth exam: PRESENT: moist, tongue midline Neck exam: ABSENT: carotid bruit, JVD, lymphadenopathy, thyromegaly Respiratory exam: PRESENT: clear to auscultation nilda, symmetrical, unlabored. ABSENT: rales, rhonchi, wheezes Cardiovascular exam: PRESENT: RRR, +S1, +S2. ABSENT: diastolic murmur, rubs, systolic murmur Pulses: PRESENT: normal dorsalis pedis pul Vascular exam: PRESENT: normal capillary refill Extremities exam: PRESENT: full ROM. ABSENT: calf tenderness, clubbing, pedal edema Musculoskeletal exam: PRESENT: ambulatory Neurological exam: PRESENT: alert, awake, oriented to person, oriented to place, oriented to time, oriented to situation, CN II-XII grossly intact. ABSENT: motor sensory deficit Psychiatric exam: PRESENT: appropriate affect, normal mood. ABSENT: homicidal ideation, suicidal ideation Skin exam: PRESENT: dry, intact, warm. ABSENT: cyanosis, rash Results Laboratory Results: WBC 7.9 10^3/uL (4.0-10.5) 09/19/19 05:51 RBC 5.07 10^6/uL (4.35-5.55) 09/19/19 05:51 Hgb 14.5 g/dL (13.5-17.0) 09/19/19 05:51 Hct 42.7 % (37.9-51.0) 09/19/19 05:51 MCV 84 fl (80-97) 09/19/19 05:51 MCH 28.7 pg (27.0-33.4) 09/19/19 05:51 MCHC 34.0 g/dL (32.0-36.0) 09/19/19 05:51 RDW 16.3 % (11.5-14.0) H 09/19/19 05:51 Plt Count 180 10^3/uL (150-450) 09/19/19 05:51 Lymph % (Auto) 29.4 % (13-45) 09/18/19 13:53 Bryan % (Auto) 6.6 % (3-13) 09/18/19 13:53 Eos % (Auto) 11.5 % (0-6) H 09/18/19 13:53 Baso % (Auto) 1.3 % (0-2) 09/18/19 13:53 Absolute Neuts (auto) 3.8 10^3/uL (1.7-8.2) 09/18/19 13:53 Absolute Lymphs (auto) 2.2 10^3/uL (0.5-4.7) 09/18/19 13:53 Absolute Monos (auto) 0.5 10^3/uL (0.1-1.4) 09/18/19 13:53 Absolute Eos (auto) 0.9 10^3/uL (0.0-0.6) H 09/18/19 13:53 Absolute Basos (auto) 0.1 10^3/uL (0.0-0.2) 09/18/19 13:53 Seg Neutrophils % 51.2 % (42-78) 09/18/19 13:53 PT 14.7 SEC (11.4-15.4) 09/18/19 13:53 INR 1.14 09/18/19 13:53 APTT 29.6 SEC (23.5-35.8) 09/18/19 13:53 Sodium 138.0 mmol/L (137-145) 09/19/19 05:51 Potassium 3.9 mmol/L (3.6-5.0) 09/19/19 05:51 Chloride 102 mmol/L (98-107) 09/19/19 05:51 Carbon Dioxide 27 mmol/L (22-30) 09/19/19 05:51 Anion Gap 9 (5-19) 09/19/19 05:51 BUN 10 mg/dL (7-20) 09/19/19 05:51 Creatinine 0.68 mg/dL (0.52-1.25) 09/19/19 05:51 Est GFR ( Amer) > 60 (>60) 09/19/19 05:51 Est GFR (MDRD) Non-Af > 60 (>60) 09/19/19 05:51 Glucose 95 mg/dL (75-110) 09/19/19 05:51 POC Glucose 98 mg/dL (70-110) 09/19/19 07:19 Hemoglobin A1c % 5.1 % (4.7-6.0) 09/18/19 13:53 Calcium 9.1 mg/dL (8.4-10.2) 09/19/19 05:51 Total Bilirubin 0.3 mg/dL (0.2-1.3) 09/18/19 13:53 Direct Bilirubin 0.0 mg/dL (0.0-0.4) 09/18/19 13:53 Neonat Total Bilirubin Not Reportable 09/18/19 13:53 Neonat Direct Bilirubin Not Reportable 09/18/19 13:53 Neonat Indirect Bili Not Reportable 09/18/19 13:53 AST 23 U/L (17-59) 09/18/19 13:53 ALT 13 U/L (<50) 09/18/19 13:53 Alkaline Phosphatase 75 U/L (38-126) 09/18/19 13:53 Total Protein 7.3 g/dL (6.3-8.2) 09/18/19 13:53 Albumin 4.2 g/dL (3.5-5.0) 09/18/19 13:53 Triglycerides 192 mg/dL (<150) H 09/18/19 13:53 Cholesterol 132.32 mg/dL (0-200) 09/18/19 13:53 LDL Cholesterol Direct 72 mg/dL (<100) 09/18/19 13:53 VLDL Cholesterol 38.4 mg/dL (10-31) H 09/18/19 13:53 HDL Cholesterol 39 mg/dL (>40) L 09/18/19 13:53 Lipase 60.1 U/L (23-300) 09/18/19 13:53 TSH 2.49 uIU/mL (0.47-4.68) 09/18/19 13:53 Cortisol AM Sample 5.03 ug/dL (4.46-22.7) 09/19/19 05:51 Urine Color YELLOW 09/18/19 16:44 Urine Appearance CLEAR 09/18/19 16:44 Urine pH 5.0 (5.0-9.0) 09/18/19 16:44 Ur Specific [place] 1.024 09/18/19 16:44 Urine Protein NEGATIVE mg/dL (NEGATIVE) 09/18/19 16:44 Urine Glucose (UA) NEGATIVE mg/dL (NEGATIVE) 09/18/19 16:44 Urine Ketones NEGATIVE mg/dL (NEGATIVE) 09/18/19 16:44 Urine Blood NEGATIVE (NEGATIVE) 09/18/19 16:44 Urine Nitrite NEGATIVE (NEGATIVE) 09/18/19 16:44 Urine Bilirubin NEGATIVE (NEGATIVE) 09/18/19 16:44 Urine Urobilinogen 2.0 mg/dL (<2.0) H 09/18/19 16:44 Ur Leukocyte Esterase NEGATIVE (NEGATIVE) 09/18/19 16:44 Urine WBC (Auto) 2 /HPF 09/18/19 16:44 Urine RBC (Auto) 1 /HPF 09/18/19 16:44 U Hyaline Cast (Auto) 1 /LPF 09/18/19 16:44 Urine Mucus (Auto) MANY /LPF 09/18/19 16:44 Urine Ascorbic Acid NEGATIVE (NEGATIVE) 09/18/19 16:44 Urine Opiates Screen NEGATIVE 09/18/19 16:44 Urine Methadone Screen NEGATIVE 09/18/19 16:44 Ur Barbiturates Screen NEGATIVE 09/18/19 16:44 Ur Phencyclidine Scrn NEGATIVE 09/18/19 16:44 Ur Amphetamines Screen NEGATIVE 09/18/19 16:44 U Benzodiazepines Scrn NEGATIVE 09/18/19 16:44 Urine Cocaine Screen NEGATIVE 09/18/19 16:44 U Marijuana (THC) Screen NEGATIVE 09/18/19 16:44 Impressions: Carotid Doppler Study 09/18/19 00:00 IMPRESSION: NO HEMODYNAMICALLY SIGNIFICANT STENOSIS. Head MRI 09/18/19 00:00 IMPRESSION: 1. Atherosclerotic disease better appreciated on CT. Increased periventricular white matter disease for age greater on the left. 2. No obvious restricted diffusion/acute infarction. Chest X-Ray 09/18/19 13:29 IMPRESSION: Small right pleural effusion. No other significant findings. Head CT 09/18/19 13:30 IMPRESSION: MILD CHRONIC CHANGES OF ATROPHY AND MICROVASCULAR ISCHEMIA. NO ACUTE PROCESS. EVIDENCE OF ACUTE STROKE: NO. Plan Plan of Treatment: Patient is discharged home, in stable condition, into the care of family members. He is arranged to follow-up with his primary care provider within 1 week. He is advised to follow-up with Dr. Moser, neurology, for further evaluation of his spastic dysarthria at the earliest available appointment. Follow up with established station cashier as previously scheduled. Continue with outpatient physical therapy and speech therapy appointments. Take medications as prescribed. Return to the emergency department as needed for concerning symptoms. Time Spent: Greater than 30 Minutes Stroke Is this a Stroke Patient?: No Acute Heart Failure - Is this a Heart Failure Patient?: No
== END 2019-09-19 15:59 | disposition home or self-care (01) ==
LOC: ER 13:24 → EH 17:04 → 3W 18:24
PROVIDERS: ADMIT Internal Medicine; ATTEND Internal Medicine
DX: R47.89 Other speech disturbances (principal); I10 Essential (primary) hypertension; E78.5 Hyperlipidemia, unspecified; R73.03 Prediabetes; H61.23 Impacted cerumen, bilateral; R42 Dizziness and giddiness; I48.91 Unspecified atrial fibrillation; R47.1 Dysarthria and anarthria; R47.81 Slurred speech; R41.3 Other amnesia; R51 Headache; I25.2 Old myocardial infarction; Z95.5 Presence of coronary angioplasty implant and graft; Z79.02 Long term (current) use of antithrombotics/antiplatelets; Z87.891 Personal history of nicotine dependence; Z95.1 Presence of aortocoronary bypass graft; Z79.899 Other long term (current) drug therapy; Z86.73 Personal history of transient ischemic attack (TIA), and cerebral infarction without residual deficits; Z79.84 Long term (current) use of oral hypoglycemic drugs; Z79.82 Long term (current) use of aspirin
CPT/HCPCS: 99285; 36415 ×2; 82962; 83690; 84443; 85025; 85027; 85610; 85730; 80048; 80053; 81001; 80307; 82533; 83036; 80061; 93880; 70551; 71046; 70450; 93005; 93010; 97161; 92522; 97166; J3490 ×2; J7030; G0378

== ENCOUNTER 2019-10-23 16:02 | Emergency (ER) | payer OTHER ==
[2019-10-23 16:18] VITALS: BP 94/63
--- NOTE | 2019-10-23 16:38 | ER Document Report ---
ED Medical Screen (RME) - General Stated Complaint: CHEST PAIN/SOB/SYNCOPE Time Seen by Provider: 10/23/19 16:27 Primary Care Provider: BALDEMAR,ALEX [Primary Care Provider] - Follow up as needed Mode of Arrival: Wheelchair Information source: Patient Notes: Patient is a 59-year-old male comes emergency room at the direction of his home health nurse because he had a syncopal episode this morning around 7:30 AM. Patient states he is walking across the kitchen floor and passed out. He states he did not slip or trip he just blacked out. Patient has a recent pertinent medical history of a bypass in July 2019. This was done in [place]. Patient states he has not followed up with the health and wellness coach since being discharged. He states that his home health nurse told him that his blood pressure when she got there was 70/50. Patient does admit to continued smoking but does not have any other medical problems. He states he had a triple bypass. Currently in ER his blood pressure sitting in wheelchair is 94/67 with a heart rate of 73 and a temp of 98.2. Physical examination: Patient is a frail-appearing 59-year-old male who also appears much older than his stated age of 59. He is in no apparent distress on examination today. Cardiac: Regular rate and rhythm no murmurs are heard at this time. Lungs: Bilateral breath sounds decreased throughout no rhonchi rales or wheeze are heard. Abdomen: Bowel sounds present all 4 quads nontender to palpate. I have greeted and performed a rapid initial assessment of this patient. A comprehensive ED assessment and evaluation of the patient, analysis of test results and completion of the medical decision making process will be conducted by additional ED providers. Dictation of this chart was performed using voice recognition software; therefore, there may be some unintended grammatical errors. - Related Data Allergies/Adverse Reactions: No Known Allergies Allergy (Verified 10/23/19 16:24) Past Medical History - Past Medical History Cardiac Medical History: Reports: Hx Atrial Fibrillation, Hx Heart Attack, Hx Hypercholesterolemia, Hx Hypertension Endocrine Medical History: Reports: Hx Diabetes Mellitus Type 2 Psychiatric Medical History: Reports: Hx Depression Past Surgical History: Reports: Hx Cardiac Catheterization - 1 stent, Hx Coronary Artery Bypass Graft, Hx Open Heart Surgery - triple bypass Physical Exam - Vital signs Vitals: Temp Pulse Resp BP Pulse Ox 98.2 F 73 22 H 94/63 L 98 10/23/19 16:07 10/23/19 16:07 10/23/19 16:07 10/23/19 16:07 10/23/19 16:07 Course - Vital Signs Vital signs: Temp Pulse Resp BP Pulse Ox 98.2 F 73 22 H 94/63 L 98 10/23/19 16:26 10/23/19 16:07 10/23/19 16:07 10/23/19 16:07 10/23/19 16:07 Doctor's Discharge - Discharge Referrals: [facility]Primary [facility] - Follow up as needed
[2019-10-23 17:13] LABS: ABSOLUTE BASOPHILS # (AUTO) 0.1 10^3/uL (0.0-0.2); ABSOLUTE EOSINOPHILS # (AUTO) 0.8 10^3/uL (0.0-0.6); ABSOLUTE LYMPHOCYTES (AUTO) 2.9 10^3/uL (0.5-4.7); ABSOLUTE MONOCYTES (AUTO) 0.6 10^3/uL (0.1-1.4); ABSOLUTE NEUT (AUTO) 3.9 10^3/uL (1.7-8.2); BASOPHILS % (AUTO) 0.9 % (0-2); EOSINOPHILS % (AUTO) 9.9 % (0-6); HEMATOCRIT 43.4 % (37.9-51.0); HEMOGLOBIN 14.4 g/dL (13.5-17.0); LYMPHOCYTES % (AUTO) 35.2 % (13-45); MEAN CORPUSCULAR HEMOGLOBIN 27.2 pg (27.0-33.4); MEAN CORPUSCULAR HGB CONC 33.2 g/dL (32.0-36.0); MEAN CORPUSCULAR VOLUME 82 fl (80-97); MONOCYTES % (AUTO) 6.7 % (3-13); PLATELET COUNT 171 10^3/uL (150-450); RED BLOOD COUNT 5.28 10^6/uL (4.35-5.55); RED CELL DISTRIBUTION WIDTH 15.8 % (11.5-14.0); SEGMENTED NEUTROPHILS % (AUTO) 47.3 % (42-78); TOTAL CELLS COUNTED % (AUTO) 100 %; WHITE BLOOD COUNT 8.3 10^3/uL (4.0-10.5)
--- NOTE | 2019-10-23 17:28 | RADIOLOGY REPORT (SQ) ---
EXAM DESCRIPTION: CHEST SINGLE VIEW IMAGES COMPLETED DATE/TIME: 10/23/2019 5:16 pm REASON FOR STUDY: Syncope COMPARISON: None. EXAM PARAMETERS: NUMBER OF VIEWS: One view. TECHNIQUE: Single frontal radiographic view of the chest acquired. RADIATION DOSE: NA LIMITATIONS: None. FINDINGS: LUNGS AND PLEURA: Persistent right pleural effusion. MEDIASTINUM AND HILAR STRUCTURES: No masses. Contour normal. HEART AND VASCULAR STRUCTURES: Heart normal in size. Normal vasculature. BONES: No acute findings. HARDWARE: Sternotomy wires. Atrial appendage clip. OTHER: No other significant finding. IMPRESSION: Persistent right pleural effusion. TECHNICAL DOCUMENTATION: JOB ID: [id number] 2010 [employer]- All Rights Reserved Reading location - IP/workstation name: [email or web address]
[2019-10-23 17:34] LABS: ALBUMIN 4.1 g/dL (3.5-5.0); ALKALINE PHOSPHATASE 70 U/L (38-126); ANION GAP 8 (5-19); ASPARTATE AMINO TRANSFERASE 21 U/L (17-59); BILIRUBIN,TOTAL 0.4 mg/dL (0.2-1.3); BLOOD UREA NITROGEN 10 mg/dL (7-20); CARBON DIOXIDE 31 mmol/L (22-30); CHLORIDE 101 mmol/L (98-107); GLUCOSE 118 mg/dL (75-110); POTASSIUM 3.7 mmol/L (3.6-5.0); TOTAL PROTEIN 7.1 g/dL (6.3-8.2)
--- NOTE | 2019-10-23 17:40 | RADIOLOGY REPORT (SQ) ---
EXAM DESCRIPTION: CT HEAD WITHOUT IMAGES COMPLETED DATE/TIME: 10/23/2019 5:24 pm REASON FOR STUDY: Syncope COMPARISON: 09/18/2019 TECHNIQUE: Axial images acquired through the brain without intravenous contrast. Images reviewed wi th bone, brain and subdural windows. Additional sagittal and coronal reconstructions were generated. Images stored on PACS. All CT scanners at this facility use dose modulation, iterative reconstruction, and/or weight based d osing when appropriate to reduce radiation dose to as low as reasonably achievable (ALARA). [facility]: Dose Right [facility]: CareDose [facility]: Dose Right [facility]: Teradose 4D [facility]: [employer] RADIATION DOSE: CT Rad equipment meets quality standard of care and radiation dose reduction techniq ues were employed. CTDIvol: 53.2 mGy. DLP: 1097 mGy-cm. mGy. LIMITATIONS: None. FINDINGS: VENTRICLES: Normal size and contour. CEREBRUM: No masses. No hemorrhage. No midline shift. No evidence for acute infarction. Normal gra y/white matter differentiation. No areas of low density in the white matter. CEREBELLUM: No masses. No hemorrhage. No alteration of density. No evidence for acute infarction. EXTRAAXIAL SPACES: No fluid collections. No masses. ORBITS AND GLOBE: No intra- or extraconal masses. Normal contour of globe without masses. CALVARIUM: No fracture. PARANASAL SINUSES: No fluid or mucosal thickening. SOFT TISSUES: No mass or hematoma. OTHER: No other significant finding. IMPRESSION: NORMAL BRAIN CT WITHOUT CONTRAST. EVIDENCE OF ACUTE STROKE: NO. COMMENT: Quality ID # [id number]: Final reports with documentation of one or more dose reduction techniques (e.g., Automated exposure control, adjustment of the mA and/or kV according to patient size, use of iterative reconstruction technique) TECHNICAL DOCUMENTATION: JOB ID: [id number] 2010 [employer]- All Rights Reserved Reading location - IP/workstation name: [email or web address]
--- NOTE | 2019-10-24 13:58 | EKG REPORT ---
SEVERITY:- ABNORMAL ECG - SINUS RHYTHM PROBABLE LEFT ATRIAL ABNORMALITY LEFT AXIS DEVIATION ANTERIOR INFARCT, AGE INDETERMINATE : Confirmed by: Dariel Pan 24-Oct-2019 13:57:43
== END 2019-10-23 21:05 | disposition left against medical advice (07) ==
LOC: ER 16:02
DX: R55 Syncope and collapse (principal); I10 Essential (primary) hypertension; I25.2 Old myocardial infarction; E11.9 Type 2 diabetes mellitus without complications; Z95.5 Presence of coronary angioplasty implant and graft; Z95.1 Presence of aortocoronary bypass graft; Z53.20 Procedure and treatment not carried out because of patient's decision for unspecified reasons
CPT/HCPCS: 36415; 70450; 71045; 80053; 84484; 85025; 93005; 93010; 99281